=== PATIENT | male | born 1965 | race Two or more races ===

== ENCOUNTER 2022-06-07 18:37 | Inpatient (IN) | payer MEDICAID ==
[~2022-06-07] VITALS: Ht 167.6 cm; Wt 79.8 kg
[2022-06-07 19:28] LABS: Basophils # (auto) 0.1 10 ^3/uL (0-0.2); Basophils % (auto) 0.8 % (0.0-2.0); Eosinophils # (auto) 0 10 ^3/uL (0-0.8); Eosinophils % (auto) 0.2 % (0.0-7.0); Hematocrit 42.1 % (41.0-53.0); Hemoglobin 14.1 g/dL (13.5-17.5); Lymphocytes % (auto) 11.4 % (10.0-50.0); Mean Corpuscular Hemoglobin 30.5 pg (28.0-32.0); Mean Corpuscular Hgb Conc. 33.5 g/dL (32.0-36.0); Monocytes # (auto) 0.6 10 ^3/uL (0-1.3); Monocytes % (auto) 7.5 % (0.0-12.0); Neutrophils # (auto) 6.7 10 ^3/uL (1.6-8.6); Neutrophils % (auto) 80.1 % (37.0-80.0); Nucleated Red Blood Cells % 0.2 %; Red Blood Cells 4.62 10^6/uL (4.5-5.90); Red Cell Distribution Width 13.9 % (11.8-14.3); White Blood Cell 8.4 10^3/uL (4.4-10.8)
[2022-06-07 19:45] LABS: Albumin 3.6 g/dL (3.4-5.0); Calcium 8.1 mg/dL (8.5-10.1)
[2022-06-07 19:54] LABS: BUN/Creatinine Ratio 3.9; Bilirubin, Total 0.4 mg/dL (0.2-1.0); Total Protein 7.1 g/dL (6.4-8.2)
[2022-06-07] MEDS ORDERED: IOHEXOL 300 MG/ML 100ML BOTTLE IJ ONE (20:15)
[2022-06-07] MEDS ORDERED: SODIUM CHLORIDE 0.9% 1,000 ML IV ONE (20:35)
[2022-06-07 20:36] LABS: Lactic Acid w/Reflex 5.5 mmol/L (0.4-2.0)
[2022-06-07] MEDS ORDERED: MORPHINE SULFATE INJ 2 MG/ml SYRG IV ONE ×2 (21:15→22:30)
[2022-06-08] MEDS ORDERED: LORazepam 0.5 MG TAB PO PRN
[2022-06-08] MEDS ORDERED: ACETAMINOPHEN 325 MG TAB PO PRN
[2022-06-08] MEDS ORDERED: ONDANSETRON HCL 4 MG/2 ML VIAL IV ONE
[2022-06-08] MEDS: D5W/SOD CHLO 0.9% 1,000 ML IV SCH ×2 (01:05→10:00)
[2022-06-08] MEDS: MORPHINE SULFATE INJ 2 MG/ml SYRG IV PRN ×8 (01:09→21:30)
[2022-06-08] MEDS ORDERED: ONDANSETRON HCL 4 MG/2 ML VIAL IV PRN (01:15)
[2022-06-08] MEDS: hydrALAZINE HCL 25 MG TAB PO PRN ×3 (02:18→17:14)
[2022-06-08 04:58] LABS: Basophils # (auto) 0 10 ^3/uL (0-0.2); Basophils % (auto) 0.4 % (0.0-2.0); Eosinophils # (auto) 0 10 ^3/uL (0-0.8); Eosinophils % (auto) 0.3 % (0.0-7.0); Hemoglobin 13.6 g/dL (13.5-17.5); Lymphocytes # (auto) 1.1 10 ^3/uL (0.4-5.4); Lymphocytes % (auto) 9.4 % (10.0-50.0); Mean Corpuscular Hemoglobin 30.6 pg (28.0-32.0); Mean Corpuscular Hgb Conc. 33.9 g/dL (32.0-36.0); Mean Corpuscular Volume 90.4 fL (80.0-100.0); Monocytes % (auto) 8.4 % (0.0-12.0); Neutrophils # (auto) 9.3 10 ^3/uL (1.6-8.6); Neutrophils % (auto) 81.5 % (37.0-80.0); Red Blood Cells 4.43 10^6/uL (4.5-5.90); Red Cell Distribution Width 14.5 % (11.8-14.3); White Blood Cell 11.4 10^3/uL (4.4-10.8)
[2022-06-08 05:05] LABS: Albumin 3.4 g/dL (3.4-5.0); Calcium 7.9 mg/dL (8.5-10.1); Potassium 3.2 mmol/L (3.5-5.1)
[2022-06-08 05:14] LABS: BUN/Creatinine Ratio 3.2; Bilirubin, Total 0.7 mg/dL (0.2-1.0)
[2022-06-08] MEDS ORDERED: MORPHINE SULFATE 4 MG/ML SYR/VIAL ONE (06:08)
[2022-06-08 07:51] VITALS: BP 165/111
[2022-06-08] MEDS: FOLIC ACID 1 MG, MULTIPLE VITAMIN 10 ML, MAGNESIUM SULF SDV 50% 8 MEQ, THIAMINE INJ 100... INJ SCH ×5 (12:47)
[2022-06-08 13:00] VITALS: BP 149/104
[2022-06-08] MEDS ORDERED: hydrOXYzine 25 MG TAB or CAP PO PRN (14:30)
[2022-06-08] MEDS: GABAPENTIN 300 MG CAP PO SCH ×2 (14:50→21:28)
[2022-06-08] MEDS: PIPERACILLIN-TAZOB 3.375GM 100 ML IV SCH ×2 (15:00→21:28)
[2022-06-08 17:00] VITALS: BP 174/120
[2022-06-08] MEDS ORDERED: LABETALOL HCL 5 MG/ML 4ML SYRINGE IV PRN (19:15)
[2022-06-08 21:45] VITALS: BP 149/104
[2022-06-09 04:37] VITALS: BP 128/90
[2022-06-09] MEDS: GABAPENTIN 300 MG CAP PO SCH ×3 (05:18→21:31)
[2022-06-09] MEDS: PIPERACILLIN-TAZOB 3.375GM 100 ML IV SCH ×3 (05:19→21:31)
[2022-06-09] MEDS: D5W/SOD CHLO 0.9% 1,000 ML IV SCH ×2 (05:19→06:00)
[2022-06-09] MEDS: MORPHINE SULFATE INJ 2 MG/ml SYRG IV PRN ×6 (05:20→23:45)
[2022-06-09 05:29] LABS: Basophils # (auto) 0 10 ^3/uL (0-0.2); Basophils % (auto) 0.5 % (0.0-2.0); Eosinophils # (auto) 0.2 10 ^3/uL (0-0.8); Eosinophils % (auto) 2.4 % (0.0-7.0); Hematocrit 42.5 % (41.0-53.0); Hemoglobin 14.5 g/dL (13.5-17.5); Lymphocytes # (auto) 1.2 10 ^3/uL (0.4-5.4); Lymphocytes % (auto) 14.3 % (10.0-50.0); Mean Corpuscular Hemoglobin 31.2 pg (28.0-32.0); Mean Corpuscular Hgb Conc. 34.2 g/dL (32.0-36.0); Mean Corpuscular Volume 91.3 fL (80.0-100.0); Monocytes # (auto) 0.6 10 ^3/uL (0-1.3); Monocytes % (auto) 6.5 % (0.0-12.0); Neutrophils # (auto) 6.5 10 ^3/uL (1.6-8.6); Neutrophils % (auto) 76.3 % (37.0-80.0); Nucleated Red Blood Cells % 0.1 %; Red Blood Cells 4.66 10^6/uL (4.5-5.90); White Blood Cell 8.6 10^3/uL (4.4-10.8)
[2022-06-09 05:41] LABS: Albumin 3.1 g/dL (3.4-5.0); Calcium 8.1 mg/dL (8.5-10.1)
[2022-06-09 05:45] LABS: BUN/Creatinine Ratio 3.4; Bilirubin, Total 1.3 mg/dL (0.2-1.0); Total Protein 6.9 g/dL (6.4-8.2)
[2022-06-09 09:00] VITALS: BP 136/86
[2022-06-09 13:00] VITALS: BP 128/86
[2022-06-09] MEDS: FOLIC ACID 1 MG, MULTIPLE VITAMIN 10 ML, MAGNESIUM SULF SDV 50% 8 MEQ, THIAMINE INJ 100... INJ SCH ×5 (15:49)
[2022-06-09] MEDS: LACTATED RINGER'S 1,000 ML IV SCH ×2 (15:58→21:10)
[2022-06-09 17:00] VITALS: BP 133/90
[2022-06-09] MEDS: MUPIROCIN 2% OINT 15gm or 22gm FOR MRSA NARES EACHNOSTRI SCH (21:31)
[2022-06-09 21:45] VITALS: BP 139/97
[2022-06-10] MEDS: LACTATED RINGER'S 1,000 ML IV SCH ×3 (04:47→17:10)
[2022-06-10 04:49] VITALS: BP 140/75
[2022-06-10] MEDS: PIPERACILLIN-TAZOB 3.375GM 100 ML IV SCH ×3 (05:31→22:33)
[2022-06-10] MEDS: GABAPENTIN 300 MG CAP PO SCH ×3 (05:32→22:34)
[2022-06-10] MEDS: MORPHINE SULFATE INJ 2 MG/ml SYRG IV PRN ×5 (05:33→18:22)
[2022-06-10 08:40] VITALS: BP 131/71
[2022-06-10] MEDS: MUPIROCIN 2% OINT 15gm or 22gm FOR MRSA NARES EACHNOSTRI SCH ×2 (09:57→22:33)
[2022-06-10 13:00] VITALS: BP 153/90
[2022-06-10] MEDS: FOLIC ACID 1 MG, MULTIPLE VITAMIN 10 ML, MAGNESIUM SULF SDV 50% 8 MEQ, THIAMINE INJ 100... INJ SCH ×5 (14:18)
[2022-06-10 17:00] VITALS: BP 160/93
[2022-06-10 18:49] LABS: Basophils # (auto) 0.1 10 ^3/uL (0-0.2); Eosinophils # (auto) 0.2 10 ^3/uL (0-0.8); Eosinophils % (auto) 3.1 % (0.0-7.0); Hematocrit 42.2 % (41.0-53.0); Hemoglobin 13.9 g/dL (13.5-17.5); Lymphocytes # (auto) 1.1 10 ^3/uL (0.4-5.4); Lymphocytes % (auto) 14.4 % (10.0-50.0); Mean Corpuscular Hemoglobin 30.7 pg (28.0-32.0); Mean Corpuscular Hgb Conc. 32.9 g/dL (32.0-36.0); Mean Corpuscular Volume 93.5 fL (80.0-100.0); Monocytes # (auto) 0.4 10 ^3/uL (0-1.3); Monocytes % (auto) 5.8 % (0.0-12.0); Neutrophils # (auto) 5.8 10 ^3/uL (1.6-8.6); Neutrophils % (auto) 75.7 % (37.0-80.0); Nucleated Red Blood Cells % 0.1 %; Red Blood Cells 4.51 10^6/uL (4.5-5.90); White Blood Cell 7.6 10^3/uL (4.4-10.8)
[2022-06-10 19:07] LABS: Albumin 3.4 g/dL (3.4-5.0); Calcium 8.9 mg/dL (8.5-10.1); Potassium 3.8 mmol/L (3.5-5.1)
[2022-06-10 19:09] LABS: BUN/Creatinine Ratio 4.8
[2022-06-10 19:20] LABS: Bilirubin, Total 1.3 mg/dL (0.2-1.0); Total Protein 6.9 g/dL (6.4-8.2)
[2022-06-10] MEDS: POTASSIUM CHL 20 Meq TABLET PO SCH (21:53)
[2022-06-10 22:00] VITALS: BP 159/101
[2022-06-11] MEDS: LACTATED RINGER'S 1,000 ML IV SCH ×4 (00:26→18:41)
[2022-06-11 05:00] VITALS: BP 173/107
[2022-06-11] MEDS: hydrALAZINE HCL 25 MG TAB PO PRN ×3 (05:37→17:02)
[2022-06-11] MEDS: MORPHINE SULFATE INJ 2 MG/ml SYRG IV PRN ×4 (05:38→23:25)
[2022-06-11] MEDS: PIPERACILLIN-TAZOB 3.375GM 100 ML IV SCH ×3 (05:41→21:07)
[2022-06-11] MEDS: GABAPENTIN 300 MG CAP PO SCH ×3 (05:41→21:07)
[2022-06-11 06:07] LABS: Basophils # (auto) 0.1 10 ^3/uL (0-0.2); Eosinophils # (auto) 0.2 10 ^3/uL (0-0.8); Eosinophils % (auto) 3.3 % (0.0-7.0); Hematocrit 41.2 % (41.0-53.0); Hemoglobin 13.8 g/dL (13.5-17.5); Lymphocytes % (auto) 15.9 % (10.0-50.0); Mean Corpuscular Hemoglobin 31.1 pg (28.0-32.0); Mean Corpuscular Hgb Conc. 33.6 g/dL (32.0-36.0); Mean Corpuscular Volume 92.5 fL (80.0-100.0); Monocytes # (auto) 0.5 10 ^3/uL (0-1.3); Monocytes % (auto) 7.7 % (0.0-12.0); Neutrophils # (auto) 4.5 10 ^3/uL (1.6-8.6); Neutrophils % (auto) 72.1 % (37.0-80.0); Nucleated Red Blood Cells % 0.1 %; Red Blood Cells 4.45 10^6/uL (4.5-5.90); Red Cell Distribution Width 14.1 % (11.8-14.3); White Blood Cell 6.3 10^3/uL (4.4-10.8)
[2022-06-11 06:31] LABS: Albumin 3.3 g/dL (3.4-5.0); Potassium 4.3 mmol/L (3.5-5.1)
[2022-06-11 06:34] LABS: BUN/Creatinine Ratio 3.8
[2022-06-11 06:37] LABS: Bilirubin, Total 0.8 mg/dL (0.2-1.0); Total Protein 6.6 g/dL (6.4-8.2)
[2022-06-11 09:00] VITALS: BP 150/103
[2022-06-11] MEDS: MUPIROCIN 2% OINT 15gm or 22gm FOR MRSA NARES EACHNOSTRI SCH ×2 (10:40→21:09)
[2022-06-11] MEDS: POTASSIUM CHL 20 Meq TABLET PO SCH (10:41)
[2022-06-11] MEDS: FOLIC ACID 1 MG, MULTIPLE VITAMIN 10 ML, MAGNESIUM SULF SDV 50% 8 MEQ, THIAMINE INJ 100... INJ SCH ×5 (11:41)
[2022-06-11 13:00] VITALS: BP 137/103
[2022-06-11 16:46] VITALS: BP 158/108
[2022-06-11] MEDS: hydrALAZINE HCL 25 MG TAB PO SCH (21:07)
[2022-06-11 22:00] VITALS: BP 149/103
[2022-06-12] MEDS: LACTATED RINGER'S 1,000 ML IV SCH ×4 (02:30→22:23)
[2022-06-12 05:00] VITALS: BP_SYST 148; BP_SYST 153; BP_DIAS 104; BP_DIAS 62
[2022-06-12] MEDS: PIPERACILLIN-TAZOB 3.375GM 100 ML IV SCH ×3 (05:15→21:49)
[2022-06-12] MEDS: GABAPENTIN 300 MG CAP PO SCH ×3 (05:16→21:50)
[2022-06-12] MEDS: hydrALAZINE HCL 25 MG TAB PO PRN (05:16)
[2022-06-12 05:25] LABS: Basophils # (auto) 0.1 10 ^3/uL (0-0.2); Eosinophils # (auto) 0.3 10 ^3/uL (0-0.8); Eosinophils % (auto) 4.2 % (0.0-7.0); Hematocrit 42.1 % (41.0-53.0); Hemoglobin 14.1 g/dL (13.5-17.5); Lymphocytes # (auto) 1.2 10 ^3/uL (0.4-5.4); Lymphocytes % (auto) 20.1 % (10.0-50.0); Mean Corpuscular Hemoglobin 30.9 pg (28.0-32.0); Mean Corpuscular Hgb Conc. 33.6 g/dL (32.0-36.0); Monocytes # (auto) 0.7 10 ^3/uL (0-1.3); Monocytes % (auto) 11.2 % (0.0-12.0); Neutrophils # (auto) 3.9 10 ^3/uL (1.6-8.6); Neutrophils % (auto) 63.5 % (37.0-80.0); Nucleated Red Blood Cells % 0.1 %; Red Blood Cells 4.57 10^6/uL (4.5-5.90); Red Cell Distribution Width 14.2 % (11.8-14.3); White Blood Cell 6.2 10^3/uL (4.4-10.8)
[2022-06-12 05:42] LABS: Albumin 2.9 g/dL (3.4-5.0); Calcium 8.6 mg/dL (8.5-10.1); Potassium 3.3 mmol/L (3.5-5.1)
[2022-06-12 05:46] LABS: BUN/Creatinine Ratio 7.5; Bilirubin, Total 0.5 mg/dL (0.2-1.0); Total Protein 6.9 g/dL (6.4-8.2)
[2022-06-12 09:00] VITALS: BP 141/97
[2022-06-12] MEDS: POTASSIUM CHL 20 Meq TABLET PO SCH (09:08)
[2022-06-12] MEDS: hydrALAZINE HCL 25 MG TAB PO SCH ×2 (09:08→21:50)
[2022-06-12] MEDS: MUPIROCIN 2% OINT 15gm or 22gm FOR MRSA NARES EACHNOSTRI SCH ×2 (09:08→21:57)
[2022-06-12] MEDS: MORPHINE SULFATE INJ 2 MG/ml SYRG IV PRN ×3 (09:09→21:51)
[2022-06-12 13:00] VITALS: BP 140/99
[2022-06-12 16:46] VITALS: BP 144/98
[2022-06-12] MEDS: FOLIC ACID 1 MG, MULTIPLE VITAMIN 10 ML, MAGNESIUM SULF SDV 50% 8 MEQ, THIAMINE INJ 100... INJ SCH ×5 (18:29)
[2022-06-12 22:00] VITALS: BP 175/114
[2022-06-13] MEDS: LACTATED RINGER'S 1,000 ML IV SCH ×2 (04:14→09:07)
[2022-06-13 05:00] VITALS: BP 150/102
[2022-06-13] MEDS: PIPERACILLIN-TAZOB 3.375GM 100 ML IV SCH (05:45)
[2022-06-13] MEDS: GABAPENTIN 300 MG CAP PO SCH (05:45)
[2022-06-13 05:50] LABS: Basophils # (auto) 0.1 10 ^3/uL (0-0.2); Eosinophils # (auto) 0.2 10 ^3/uL (0-0.8); Eosinophils % (auto) 3.7 % (0.0-7.0); Hematocrit 42.3 % (41.0-53.0); Hemoglobin 14.3 g/dL (13.5-17.5); Lymphocytes # (auto) 1.5 10 ^3/uL (0.4-5.4); Lymphocytes % (auto) 22.8 % (10.0-50.0); Mean Corpuscular Hemoglobin 31.5 pg (28.0-32.0); Mean Corpuscular Hgb Conc. 33.8 g/dL (32.0-36.0); Mean Corpuscular Volume 93.2 fL (80.0-100.0); Monocytes # (auto) 0.9 10 ^3/uL (0-1.3); Monocytes % (auto) 14.1 % (0.0-12.0); Neutrophils # (auto) 3.7 10 ^3/uL (1.6-8.6); Neutrophils % (auto) 58.4 % (37.0-80.0); Red Blood Cells 4.54 10^6/uL (4.5-5.90); Red Cell Distribution Width 14.2 % (11.8-14.3); White Blood Cell 6.4 10^3/uL (4.4-10.8)
[2022-06-13 05:58] LABS: Calcium 8.7 mg/dL (8.5-10.1); Potassium 3.7 mmol/L (3.5-5.1)
[2022-06-13 06:01] LABS: BUN/Creatinine Ratio 7.5
[2022-06-13 06:03] LABS: Bilirubin, Total 0.4 mg/dL (0.2-1.0); Total Protein 6.8 g/dL (6.4-8.2)
[2022-06-13 09:00] VITALS: BP 150/90
[2022-06-13] MEDS: hydrALAZINE HCL 25 MG TAB PO SCH (09:06)
[2022-06-13] MEDS: POTASSIUM CHL 20 Meq TABLET PO SCH (09:06)
[2022-06-13] MEDS: MORPHINE SULFATE INJ 2 MG/ml SYRG IV PRN (09:07)
[2022-06-13] MEDS: MUPIROCIN 2% OINT 15gm or 22gm FOR MRSA NARES EACHNOSTRI SCH (09:08)
[2022-06-13] MEDS ORDERED: HYDR1TAB97 PO (09:52)
[2022-06-13 10:19] VITALS: BP 150/90
== END 2022-06-13 13:04 | disposition home or self-care (01) | DRG 282 ==
LOC: ER 18:37 → EDBD 18:37 → OVERFLOW 06-08 00:06 → WEST WING 06-08 07:45
PROVIDERS: ADMIT Internal Medicine; ATTEND Internal Medicine
DX: K85.20 Alcohol induced acute pancreatitis without necrosis or infection (principal); E87.2 Acidosis; K76.0 Fatty (change of) liver, not elsewhere classified; F10.10 Alcohol abuse, uncomplicated; J98.11 Atelectasis; E87.6 Hypokalemia; Z20.822 Contact with and (suspected) exposure to COVID-19; R79.89 Other specified abnormal findings of blood chemistry
CPT/HCPCS: 36415; 74176; 80053; 82150; 83605; 83690; 84478; 84484; 85025; 87081; 96361; 96374; 96376; 99291; G0378; J2543; J7042